=== PATIENT | female | born 1985 | race Caucasian/White ===

== ENCOUNTER 2017-09-19 20:23 | Emergency (ER) | payer SELFPAY ==
[~2017-09-19] VITALS: Ht 154.9 cm; Wt 52.2 kg
--- NOTE | 2017-09-19 21:53 | NUR ---
PT MOTHER, C/O RT UPPER SIDE PAIN X 3 DAYS, N/V/D, NO HEMATURIA, LBM X2HRS AGO. PT AOX3 RR EVEN AND UNLABORED. NO SOB NOTED. NAD NOTED. NO NVD AT THIS TIME. PT GOWNED AND PLACED ON MONITOR WAITING FOR MD HERNÁNDEZ. URINE COLLECTED.
--- NOTE | 2017-09-19 21:58 | NUR ---
RACHEAL AHN AT BEDSIDE FOR EVAL.
[2017-09-19] MEDS ORDERED: KETOROLAC TROMETHAMINE INJ 60 MG/2 ML VIAL IM ONE (22:30)
[2017-09-19 22:36] LABS: APPEARANCE,URINE CLEAR (CLEAR); BILIRUBIN,URINE NEGATIVE (NEGATIVE); BLOOD, URINE TRACE-INTA Ery/uL (NEGATIVE); COLOR,URINE YELLOW (YELLOW); KETONES,URINE NEGATIVE (NEGATIVE); LEUKOCYTE ESTERASE ,URINE NEGATIVE (NEGATIVE); NITRITE, URINE NEGATIVE (NEGATIVE); PROTEIN,URINE NEGATIVE (NEGATIVE); UGLUCOSE NEGATIVE (NEGATIVE); UROBILINOGEN,URINE 0.2 EU/dL (0.2)
[2017-09-19 22:40] LABS: BACTERIA,URINE Rare /HPF (None Seen); RBC,URINE 0-2 /HPF (0-2); SQUAMOUS EPITHELIAL CELL,UR Few /HPF (None Seen); WBC,URINE NONE SEEN /HPF (0-3)
[2017-09-19] MEDS ORDERED: KETOROLAC TROMETHAMINE INJ 30 MG/ML VIAL ONE (22:43)
--- NOTE | 2017-09-19 22:47 | NUR ---
PT TO CT.
--- NOTE | 2017-09-19 22:56 | NUR ---
PT RETURNED FROM CT.
--- NOTE | 2017-09-19 23:24 | NUR ---
RACHEAL AHN AT BEDSIDE SPEAKING TO PT REGARDING RESULTS
--- NOTE | 2017-09-19 23:43 | NUR ---
Patient discharged to home in stable condition. Written and verbal after care instructions given. Patient verbalizes understanding of instruction. ambulatory with a steady gait.
[2017-09-19 23:46] VITALS: BP 116/66
== END 2017-09-19 23:47 | disposition home or self-care (01) ==
LOC: ER 20:28
DX: R10.11 Right upper quadrant pain (principal)
CPT/HCPCS: 74176; 81001; 84703; 96372; 99285; A4606; J1885; Z7610; 81000-TC